=== PATIENT | male | born 1970 | race Caucasian/White ===

== ENCOUNTER 2016-10-02 11:54 | Emergency (ER) | payer MEDICAID ==
[~2016-10-02] VITALS: Ht 185.4 cm; Wt 99.8 kg
[~2016-10-02 11:54] MED LIST: LEVO500T6 PO; METR250T2 PO; SACC250C4 PO
[2016-10-02 11:58] VITALS: BP 164/99
[2016-10-02] MEDS: ALBUTEROL SULFATE/IPRATROPIU 3 ML SOL IH ONE ×2 (12:50→12:55)
[2016-10-02 12:57] LABS: HEMATOCRIT 42.8 % (36-52); HEMOGLOBIN 14.5 g/dL (12.0-18.0); MEAN CORPUSCULAR HEMOGLOBIN 30 pg (27-31); MEAN CORPUSCULAR HGB CONC 34 g/dL (33-37); MEAN CORPUSCULAR VOLUME 87 fL (80-94); PLATELET COUNT (AUTO) 278 K/uL (140-450); RED CELL DISTRIBUTION WIDTH 12.3 % (11.6-13.7); WHITE BLOOD COUNT (AUTO) 11.3 K/uL (4.8-10.8)
[2016-10-02 13:01] LABS: ANION GAP 11.9 (8-16); CALCIUM 8.4 mg/dL (8.5-10.1); CARBON DIOXIDE 26.7 mmol/L (21-32); CREATININE 1.2 mg/dL (0.6-1.3); POTASSIUM 3.6 mmol/L (3.5-5.1)
[2016-10-02] MEDS: methylPREDNISolone SS 125 MG/2 ML VIAL IVP ONE (13:02)
[2016-10-02 13:06] LABS: ALBUMIN 3.2 g/dL (3.4-5.0); TOTAL BILIRUBIN 0.8 mg/dL (0.0-1.0); TOTAL PROTEIN, SERUM 7.3 g/dL (6.4-8.2)
[2016-10-02 13:08] LABS: BAND % (MANUAL) 8 % (0-8); EOSINOPHILS % (MANUAL) 16 % (0-4); LYMPHOCYTES % (MANUAL) 14 % (20-46); MONOCYTES % (MANUAL) 9 % (5-12); NEUTROPHILS % (MANUAL) 53 (43-65)
[2016-10-02 15:00] VITALS: BP 127/76
== END 2016-10-02 15:00 | disposition home or self-care (01) ==
LOC: MED 11:54
DX: J45.901 Unspecified asthma with (acute) exacerbation (principal); I10 Essential (primary) hypertension; Z85.47 Personal history of malignant neoplasm of testis; Z90.79 Acquired absence of other genital organ(s)
CPT/HCPCS: 36415; 71010; 80053; 85025; 85379; 93005; 94640; 96374; 99285; J2930; J7620; Q0092

== ENCOUNTER 2017-06-04 09:46 | Emergency (ER) | payer SELFPAY ==
[~2017-06-04] VITALS: Ht 185.4 cm; Wt 99.4 kg
[~2017-06-04 09:46] MED LIST changes: +FLOR250 PO; -SACC250C4 PO
[2017-06-04 09:58] VITALS: BP 142/97
--- NOTE | 2017-06-04 10:07 | NUR ---
PT TO ER BED 2
--- NOTE | 2017-06-04 10:10 | NUR ---
46 m bib with son with c/o productive cough with mild sob x 1 wk. Pt denies any cp but sts "chest tightness" when breathing"; Pt denies fever or n/v/d. Pt is aox4 with steady gait. RR are even and unlabored. Pt positioned to comfort, bed down. ER MD ordonez by bedside examining pt. All needs met at this time. Will continue to monitor.
[2017-06-04] MEDS ORDERED: ALBUTEROL SULFATE/IPRATROPIU 3 ML SOL IH ONE ×2 (10:15→10:40)
[2017-06-04] MEDS ORDERED: methylPREDNISolone SS 125 MG/2 ML VIAL IM ONE (10:15)
[2017-06-04 11:10] VITALS: BP 126/81
--- NOTE | 2017-06-04 11:10 | NUR ---
Patient discharged with v/s stable. Written and verbal after care instructions given and explained. Patient alert, oriented and verbalized understanding of instructions. Ambulatory with steady gait. All questions addressed prior to discharge. ID band removed. Patient advised to follow up with PMD. Rx of Proair, Prednisone given. Patient educated on indication of medication including possible reaction and side effects. Opportunity to ask questions provided and answered.
== END 2017-06-04 11:15 | disposition home or self-care (01) ==
LOC: MED 09:46
DX: J45.909 Unspecified asthma, uncomplicated (principal); J06.9 Acute upper respiratory infection, unspecified; I10 Essential (primary) hypertension; Z85.47 Personal history of malignant neoplasm of testis; Z79.899 Other long term (current) drug therapy
CPT/HCPCS: 36415; 87804; 94640; 96372; 99284; J2930; J7620

== ENCOUNTER 2020-09-13 10:45 | Emergency (ER) | payer MEDICAID ==
[~2020-09-13] VITALS: Ht 185.4 cm; Wt 97.5 kg
[~2020-09-13 10:45] MED LIST changes: +METR-520 PO; -METR250T2 PO
[2020-09-13 10:57] VITALS: BP 146/96
--- NOTE | 2020-09-13 11:09 | NUR ---
DR. SOLORIO AT BEDSIDE ASSESSING PT
[2020-09-13] MEDS ORDERED: KETOROLAC 30 MG/ML VIAL IM ONE (11:10)
--- NOTE | 2020-09-13 11:10 | NUR ---
PATIENT PRESENTS TO ED WITH C/O RIB PAIN S/P FALL. PT STATES THAT HE SLIPPED WHILE GETTING OUT OF THE TUB AND LANDED ON HIS RIGHT RIBS. SKIN ON RIBS IS INTACT, NO SIGNS OF BRUSIING, TENDER TO FIRM PRESSUE. DENIES HITTING HEAD, DENIES LOC. DENIES N/V/D; SKIN IS PINK/WARM/DRY; AAOX4 WITH EVEN AND STEADY GAIT; LUNGS CLEAR BL; HR EVEN AND REGULAR; PT DENIES ANY FEVER, CP, SOB, OR COUGH AT THIS TIME; PATIENT STATES PAIN OF 0/10 AT THIS TIME; VSS; PATIENT POSITIONED FOR COMFORT; HOB ELEVATED; BEDRAILS UP X2; BED DOWN. ER MD MADE AWARE OF PT STATUS. HX: ASTHMA NKA
[2020-09-13] MEDS ORDERED: NAPR-1704 PO (12:28)
[2020-09-13] MEDS ORDERED: LID5T TP (12:28)
[2020-09-13] MEDS ORDERED: ACET-8386 PO (12:28)
[2020-09-13] MEDS ORDERED: ALBU-118 INH (12:38)
--- NOTE | 2020-09-13 13:07 | NUR ---
Patient discharged with v/s stable. Written and verbal after care instructions given and explained. Patient alert, oriented and verbalized understanding of instructions. Ambulatory with steady gait. All questions addressed prior to discharge. ID band removed. Patient advised to follow up with PMD. Rx of NORCO, NAPROSYN, LIDODERM given. Patient educated on indication of medication including possible reaction and side effects. Opportunity to ask questions provided and answered.
[2020-09-13 13:08] VITALS: BP 122/78
== END 2020-09-13 13:00 | disposition home or self-care (01) ==
LOC: MED 10:45
DX: S20.211A Contusion of right front wall of thorax, initial encounter (principal); J45.909 Unspecified asthma, uncomplicated; I10 Essential (primary) hypertension; Z79.899 Other long term (current) drug therapy; Z85.47 Personal history of malignant neoplasm of testis; Z98.890 Other specified postprocedural states; W19.XXXA Unspecified fall, initial encounter; Y93.89 Activity, other specified; Y92.89 Other specified places as the place of occurrence of the external cause; Y99.8 Other external cause status
CPT/HCPCS: 71045; 96372; 99283; J1885

== ENCOUNTER 2021-02-01 16:04 | Emergency (ER) | payer MEDICAID ==
[~2021-02-01] VITALS: Ht 185.4 cm; Wt 90.0 kg
[~2021-02-01 16:04] MED LIST changes: +ACET-8386 PO; +ALBU-118 INH; +LID5T TP; +NAPR-1704 PO
[2021-02-01 16:38] VITALS: BP 138/77
[2021-02-01 18:07] LABS: BASOPHILS % (AUTO) 0.3 % (0.0-2.0); EOSINOPHILS # (AUTO) 0.3 K/uL (0-0.4); EOSINOPHILS % (AUTO) 2.2 % (0.0-4.0); HEMATOCRIT 44.7 % (36-52); HEMOGLOBIN 15.3 g/dL (12.0-18.0); LYMPHOCYTES # (AUTO) 1.5 K/uL (2.0-11.5); MEAN CORPUSCULAR HEMOGLOBIN 31 pg (27-31); MEAN CORPUSCULAR HGB CONC 34 g/dL (33-37); MEAN CORPUSCULAR VOLUME 89.5 fL (80-94); MONOCYTES # (AUTO) 1.4 K/uL (0.8-1.0); MONOCYTES % (AUTO) 12.2 % (1.7-9.3); NEUTROPHILS # (AUTO) 8.5 K/uL (1.8-7.7); NEUTROPHILS % (AUTO) 72.3 % (42.2-75.2); PLATELET COUNT (AUTO) 415 K/uL (140-450); RED BLOOD CELL COUNT(AUTO) 4.99 MIL/uL (4.20-6.10); RED CELL DISTRIBUTION WIDTH 13.2 % (11.6-13.7); WHITE BLOOD COUNT (AUTO) 11.8 K/uL (4.8-10.8)
[2021-02-01 18:16] LABS: ALBUMIN 3.4 g/dL (3.4-5.0); ANION GAP 16.4 (8-16); CARBON DIOXIDE 24.4 mmol/L (21-32); CREATININE 1.2 mg/dL (0.6-1.3); POTASSIUM 3.8 mmol/L (3.5-5.1); TOTAL BILIRUBIN 0.9 mg/dL (0.0-1.0)
--- NOTE | 2021-02-01 18:31 | NUR ---
Pt ambulated to bed 08.
--- NOTE | 2021-02-01 18:43 | NUR ---
50 Y/O MALE C/O ABDOMINAL PAIN WITH DIARRHEA X2 WEEKS. PT STATES THE SAME THING HAPPENED IN 2016 AND WAS ADMITTED TO [facility] FOR PANCREATITIS AND COLITIS. +ACID REFLUX. STATES FEELS LIKE "BURPING" AND SHARP 10/10 PAIN. WITH NO APPETITE AND CHILLS. PMH: TESTICULAR CANCER-REMISSION X15 YRS AGO, ASTHMA NKDA
--- NOTE | 2021-02-01 19:20 | NUR ---
Pt report given to RAJESH FOLEY. Transfer of care at this time.
[2021-02-01] MEDS ORDERED: KETOROLAC 60 MG/2 ML VIAL IM ONE (19:30)
[2021-02-01] MEDS ORDERED: IBUP-2213 PO (19:40)
[2021-02-01] MEDS ORDERED: ACET-8386 PO (19:40)
[2021-02-01] MEDS ORDERED: CIPR500T4 PO (19:40)
[2021-02-01] MEDS ORDERED: NACL 0.9% 1,000 ML IV ONE (20:00)
[2021-02-01] MEDS ORDERED: KETOROLAC 30 MG/ML VIAL IVP ONE (20:00)
--- NOTE | 2021-02-01 20:05 | NUR ---
IV 20G EST TO LAC. +BLOOD RETURN, PATENT. PT TOLERATED WELL.
[2021-02-01 20:50] VITALS: BP 98/60
--- NOTE | 2021-02-01 20:50 | NUR ---
Patient discharged with v/s stable. Written and verbal after care instructions given and explained. Patient alert, oriented and verbalized understanding of instructions. Ambulatory with steady gait. All questions addressed prior to discharge. ID band removed. Patient advised to follow up with PMD. Rx of NORCO, MOTRIN AND CIPRO given. Patient educated on indication of medication including possible reaction and side effects. Opportunity to ask questions provided and answered.
== END 2021-02-01 20:50 | disposition home or self-care (01) ==
LOC: MED 16:04
DX: R10.13 Epigastric pain (principal); R19.7 Diarrhea, unspecified; J45.909 Unspecified asthma, uncomplicated; Z98.890 Other specified postprocedural states; Z79.899 Other long term (current) drug therapy
CPT/HCPCS: 36415; 80053; 83690; 85025; 96361; 96374; 99283; J1885; J7030

== ENCOUNTER 2021-02-06 09:25 | Inpatient (IN) | payer MEDICAID, SELFPAY ==
--- NOTE | 2021-01-25 19:00 | NUR ---
PATIENT RECEIVED RESTING IN BED, AWAKE, A/OX4. RESPIRATION EVEN AND UNLABORED. IV OF D5 0.45% NS WITH 40 MEQ KCL INFUSING AT 80 ML/HR, LEFT HAND G22. INDEPENDENT, ABLE TO AMBULATE BY HIMSELF TO THE BR. RN DISCUSSED WITH PATIENT MEDICATION REGIMEN, FALL AND SAFETY INTERVENTIONS AND MEDICAL MANAGEMENT. PATIENT RECEPTIVE TO PLAN OF CARE. VERBALIZED UNDERSTANDING. NO ACUTE DISTRESS NOTED.
[~2021-02-06] VITALS: Ht 185.4 cm; Wt 86.6 kg
[~2021-02-06 09:25] MED LIST changes: +CIPR500T4 PO; +IBUP-2213 PO
[2021-02-06 09:43] VITALS: BP 121/68
--- NOTE | 2021-02-06 09:47 | NUR ---
PT TO WAIT IN LOBBY. GIVEN URINE CUP
--- NOTE | 2021-02-06 11:03 | NUR ---
PATIENT AMBULATED WITH STEADY GAIT TO BED 4.
--- NOTE | 2021-02-06 11:20 | NUR ---
50 y/o M BIB self from home c/o abdominal pain, nausea vomiting x 2 weeks. Patient A&Ox4, ambulatory, reports seen here on Monday and discharged with ABX treatment without relief to symptoms. Patient states RUQ pain and epigastric pain 10/10, sharp/constant, radiating to low and mid back. Patient reports associated nausea, vomiting x 2 days, 3 episodes/day. Patient denies any medications for pain. Denies fever, SOB, chest pain, dizziness, dysuria, urinary symptoms. educational adviser in place. VSS; respirations even/unlabored. Bed locked in lowest position, side rails x 1, call light in reach. PMH: TESTICULAR CANCER X15 YRS AGO, IN REMISSION, pancreatitis 2016 NKDA Meds: ABX
--- NOTE | 2021-02-06 11:25 | NUR ---
Dr. Blanchard is evaluating patient at bedside
[2021-02-06] MEDS ORDERED: NACL 0.9% 1,000 ML IV ONE (11:35)
[2021-02-06] MEDS ORDERED: MORPHINE SULFATE 4 MG/ML SYR IVP ONE (11:35)
--- NOTE | 2021-02-06 11:53 | NUR ---
Pt reports positive relief, denies nausea. 9/10 pain
[2021-02-06 12:03] LABS: BASOPHILS # (AUTO) 0.3 K/uL (0.00-0.22); BASOPHILS % (AUTO) 1.7 % (0.0-2.0); EOSINOPHILS # (AUTO) 0.1 K/uL (0-0.4); EOSINOPHILS % (AUTO) 0.8 % (0.0-4.0); HEMATOCRIT 46.4 % (36-52); HEMOGLOBIN 15.9 g/dL (12.0-18.0); LYMPHOCYTES # (AUTO) 0.8 K/uL (2.0-11.5); LYMPHOCYTES % (AUTO) 4.5 % (20.5-51.1); MEAN CORPUSCULAR HEMOGLOBIN 30 pg (27-31); MEAN CORPUSCULAR HGB CONC 34 g/dL (33-37); MEAN CORPUSCULAR VOLUME 88.5 fL (80-94); MONOCYTES # (AUTO) 0.4 K/uL (0.8-1.0); MONOCYTES % (AUTO) 2.5 % (1.7-9.3); NEUTROPHILS # (AUTO) 16.3 K/uL (1.8-7.7); NEUTROPHILS % (AUTO) 90.5 % (42.2-75.2); PLATELET COUNT (AUTO) 489 K/uL (140-450); RED BLOOD CELL COUNT(AUTO) 5.24 MIL/uL (4.20-6.10); RED CELL DISTRIBUTION WIDTH 13.4 % (11.6-13.7)
[2021-02-06 12:21] LABS: ALBUMIN 2.6 g/dL (3.4-5.0); ANION GAP 19.7 (8-16); CARBON DIOXIDE 20.9 mmol/L (21-32); CREATININE 1.4 mg/dL (0.6-1.3); POTASSIUM 3.6 mmol/L (3.5-5.1); TOTAL BILIRUBIN 0.9 mg/dL (0.0-1.0)
--- NOTE | 2021-02-06 12:30 | NUR ---
Patient transported to CT by WC
--- NOTE | 2021-02-06 12:40 | NUR ---
Patient returned from CT and placed back onto IVF and marine geologist.
[2021-02-06 13:00] LABS: APPEARANCE,URINE HAZY (CLEAR); BILIRUBIN,URINE 2+ (NEGATIVE); BLOOD, URINE NEGATIVE (NEGATIVE); COLOR,URINE YELLOW (YELLOW); LEUKOCYTE ESTERASE ,URINE NEGATIVE (NEGATIVE); NITRITE, URINE POSITIVE (NEGATIVE); UGLUCOSE NEGATIVE (NEGATIVE)
--- NOTE | 2021-02-06 13:20 | NUR ---
Patient presents with both eyes closed in semi-fowlers position. Patient has music playing on phone resting on chest. patient monitor in place. VSS; respirations even/unlabored. Bed locked in lowest position, side rails x 1, call light in reach.
--- NOTE | 2021-02-06 13:25 | NUR ---
Dr. Blanchard is reevaluating patient at bedside.
[2021-02-06] MEDS ORDERED: MORPHINE SULFATE 2 MG/ML SYR IVP ONE (13:30)
[2021-02-06] MEDS ORDERED: AMPICILLIN/SULBACTAM 3 GM in NACL 0.9% 100 ML IV ONE (13:35)
[2021-02-06] MEDS ORDERED: DEXT 5% /NACL 0.9% 1,000 ML IV ONE (13:35)
[2021-02-06] MEDS ORDERED: AMPICILLIN/SULBACTAM 3 GM VIAL ONE (13:37)
[2021-02-06] MEDS ORDERED: ZOLPIDEM 5 MG TAB PO PRN (13:45)
[2021-02-06] MEDS ORDERED: DOCUSATE SODIUM 100 MG GELCAP PO PRN (13:45)
[2021-02-06] MEDS ORDERED: guaiFENesin DM 200/20 MG-10 ML 10 ML UDC PO PRN (13:45)
--- NOTE | 2021-02-06 13:50 | NUR ---
RAD AT BEDSIDE
--- NOTE | 2021-02-06 13:51 | NUR ---
Dr. Vazquez is evaluating patient at bedside
--- NOTE | 2021-02-06 14:15 | NUR ---
Aneesh feliciano and blood cultures handed to James, CPT
--- NOTE | 2021-02-06 14:35 | NUR ---
Lab at bedside for blood draw
[2021-02-06] MEDS: KETOROLAC 30 MG/ML VIAL IVP SCH ×2 (14:36→21:26)
[2021-02-06] MEDS: ONDANSETRON 4 MG/2 ML VIAL IM/IVP PRN ×2 (14:37→18:35)
[2021-02-06 14:56] LABS: BARBITURATE, URINE NEGATIVE ng/ml (NEG <=200); BENZODIAZEPINE, URINE NEGATIVE ng/mL (NEG <=200); CANNABINOID, URINE NEGATIVE ng/mL (NEG <=50); COCAINE, URINE NEGATIVE ng/mL (NEG <=300); PHENCYCLIDINE SCREEN,URINE NEGATIVE ng/mL (NEG <=25)
[2021-02-06] MEDS: predniSONE 5 MG TAB PO SCH ×2 (14:56→21:26)
[2021-02-06 14:57] LABS: OPIATE, URINE POSITIVE ng/mL (NEG <=2000)
[2021-02-06 15:21] LABS: PROTHROMBIN TIME 12.6 secs (10.8-13.4)
[2021-02-06 15:26] LABS: CHOL/HDL RATIO 4.7 (1-4.5); FREE T4 (FREE THYROXINE) 1.3 ng/dL (0.76-1.46); PHOSPHORUS 4.6 mg/dL (2.5-4.9); THYROID STIMULATING HORMONE 0.87 uIU/mL (0.34-3.74)
[2021-02-06] MEDS: LEVOFLOXACIN 750 MG/D5W PREMIX 150 ML IV SCH (15:27)
--- NOTE | 2021-02-06 15:27 | NUR ---
Patient resting in semi-fowlers position. secured entrance monitor and IVPB continued. VSS; respirations even/unlabored. Rates pain 2/10, (-) nausea. Bed locked in lowest position, side rails x 1, call light in reach.
--- NOTE | 2021-02-06 16:30 | NUR ---
Patient resting in semi-fowlers position. ekg monitor tech and IVPB continued. VSS; respirations even/unlabored. Bed locked in lowest position, side rails x 1, call light in reach.
--- NOTE | 2021-02-06 18:00 | NUR ---
Patient reports 10 requesting pain medication and nausea meds. States slight nausea. PRN orders to be given.
[2021-02-06] MEDS: HYDROcodone/APAP 7.5/325 MG 1 TAB PO PRN (18:35)
--- NOTE | 2021-02-06 18:37 | NUR ---
Patient resting in semi-fowlers position with environmental monitoring specialist and IVF continued. States + relief after Zofran 4mg IVP. Bed locked in lowest position, side rails x 1.
--- NOTE | 2021-02-06 19:05 | NUR ---
D5% NS 0.9% VTBI 320mL
--- NOTE | 2021-02-06 19:14 | NUR ---
Report and transfer of care endorsed to OG Powers.
--- NOTE | 2021-02-06 19:37 | NUR ---
pt is sitting up in bed using phone. pt denies pain at this time. vss. pt in stable condition. all needs met at this time. bed locked in lowest position, side railsx1.
--- NOTE | 2021-02-06 20:23 | NUR ---
report called to tadeo jones.
--- NOTE | 2021-02-06 20:26 | NUR ---
pt left to floor
--- NOTE | 2021-02-06 20:30 | NUR ---
Patient will be admitted to care of . Admited to tele. Will go to room 115. Belongings list completed. Report to tadeo jones.
--- NOTE | 2021-02-06 20:30 | NUR ---
PATIENT WAS BROUGHT TO TELEMETRY UNIT FROM ER VIA GURNEY. CC: ABDOMINAL PAIN DX: COLITIS, ABDOMINAL PAIN. AAOX4, NO ACUTE DISTRESS. RESPIRATION EVEN UNLABORED. PATIENT IS NPO EXCEPT MEDS. ORIENTED TO ROOM, CALL LIGHT , STAFF. CALL LIGHT WITHIN REACH. ALL SAFETY MEASURES ARE IN PLACE. WILL CONTINUE TO MONITOR.
[2021-02-07] VITALS: BP 98/58
[2021-02-07] MEDS: HYDROcodone/APAP 7.5/325 MG 1 TAB PO PRN ×4 (01:12→20:10)
[2021-02-07 04:00] VITALS: BP 98/53
[2021-02-07 05:31] LABS: HEMATOCRIT 37.7 % (36-52); HEMOGLOBIN 12.7 g/dL (12.0-18.0); MEAN CORPUSCULAR HEMOGLOBIN 30 pg (27-31); MEAN CORPUSCULAR HGB CONC 34 g/dL (33-37); PLATELET COUNT (AUTO) 443 K/uL (140-450); RED BLOOD CELL COUNT(AUTO) 4.19 MIL/uL (4.20-6.10); RED CELL DISTRIBUTION WIDTH 13.3 % (11.6-13.7); WHITE BLOOD COUNT (AUTO) 14.4 K/uL (4.8-10.8)
[2021-02-07] MEDS: KETOROLAC 30 MG/ML VIAL IVP SCH (05:54)
[2021-02-07 06:22] LABS: ANION GAP 13.3 (8-16); CARBON DIOXIDE 23.2 mmol/L (21-32); CREATININE 1.1 mg/dL (0.6-1.3); POTASSIUM 3.5 mmol/L (3.5-5.1)
[2021-02-07 06:36] LABS: BASOPHILS % (MANUAL) 0 % (0-2); EOSINOPHILS % (MANUAL) 0 % (0-4); LYMPHOCYTES % (MANUAL) 11 % (20-46); MONOCYTES % (MANUAL) 10 % (5-12)
--- NOTE | 2021-02-07 07:17 | NUR ---
BEDSIDE ENDORSEMENT GIVEN TO AM NURSE FOR CONTINUITY OF CARE. PATIENT IS STABLE.
--- NOTE | 2021-02-07 07:34 | NUR ---
RECEIVED REPORT FROM BENCH MOVER NURSE. PT STABLE. NO S/S OF DISTRESS. BREATHING IS SYMMETRICAL. CALL LIGHT IN REACH. ALL SAFETY MEASURES IN PLACE.
[2021-02-07 08:00] VITALS: BP 110/60
[2021-02-07 08:07] LABS: T4 (THYROXINE) 7.1 ug/dL (4.5-12.0)
[2021-02-07] MEDS: predniSONE 5 MG TAB PO SCH ×2 (08:41→20:09)
[2021-02-07] MEDS: PANTOPRAZOLE 40 MG TABEC PO SCH (08:42)
--- NOTE | 2021-02-07 09:30 | NUR ---
COLLECTED STOOL SAMPLE FROM PATIENT. PT COMPLAINED OF PAIN 10/22. REPOSITIONED, EDUCATED ON BREATHING EXERCISES, AND MEDICATED. WILL REASSESS. CALL LIGHT IN REACH. ALL SAFETY MEASURES IN PLACE.
--- NOTE | 2021-02-07 11:34 | NUR ---
PT RESTING IN BED. NO S/S OF DISTRESS. SYMMETRICAL BREATHING. IV PATENT, DRY AND INTACT. RUNNING FLUIDS PER MD ORDER. CALL LIGHT IN REACH. ALL SAFETY MEASURES IN PLACE
[2021-02-07 12:00] VITALS: BP 96/61
--- NOTE | 2021-02-07 13:25 | NUR ---
PATIENT REQUESTED TO TAKE A SHOWER. TELE MONITOR REMOVED TEMPORARILY. IV WRAPPED. PATIENT EDUCATED STRIP MACHINE OPERATOR LIGHT. ALL SAFETY MEASURES IN PLACE.
[2021-02-07] MEDS: LEVOFLOXACIN 750 MG/D5W PREMIX 150 ML IV SCH (14:20)
[2021-02-07] MEDS: ONDANSETRON 4 MG/2 ML VIAL IM/IVP PRN (15:11)
--- NOTE | 2021-02-07 15:15 | NUR ---
PT RESTING IN BED. REPORTED NAUSEA. MEDICATED PER MD ORDERS. PATIENT TOLERATING WELL. COLLECTED SECOND STOOL SAMPLE AND DELIVERED TO LAB. CALL LIGHT IN REACH. ALL SAFETY MEASURES IN PLACE.
[2021-02-07 16:00] VITALS: BP 107/66
--- NOTE | 2021-02-07 17:24 | NUR ---
PT IV FELL OUT WHEN GETTING OUT OF BED. WILL ESTABLISH NEW IV. IV CANULA INTACT. PT STABLE. NO S/S OF DISTRESS. PT STATED PAIN REDUCTION 2/10 AND TOLERABLE. CALL LIGHT IN REACH. ALL SAFETY MEASURES IN PLACE.
[2021-02-07] MEDS ORDERED: DEXMEDETOMIDINE HCL 400 MCG in NACL 0.9% 96 ML IV PRN (17:30)
[2021-02-07] MEDS ORDERED: VANCOMYCIN 500 MG VIAL PO SCH (18:00)
--- NOTE | 2021-02-07 18:30 | NUR ---
UNABLE TO PLACE IV AT THIS TIME. PATIENT HAS NOT RECEIVED 1800 MEDICATIONS PER MD ORDER. PT STABLE. CALL LIGHT IN REACH. ALL SAFETY MEASURES IN PLACE.
--- NOTE | 2021-02-07 19:22 | NUR ---
ENDORSED PT TO AMORTIZATION CLERK NURSE FOR CONTINUITY OF CARE. PT STABLE. NO S/S OF DISTRESS. CALL LIGHT IN REACH. ALL SAFETY MEASURES IN PLACE.
--- NOTE | 2021-02-07 19:23 | NUR ---
RECEIVED REPORT FROM AM NURSE. PATIENT IS RESTING IN BED. NO ACUTE DISTRESS NOTED. RESPIRATION EVEN UNLABORED. CALL LIGHT WITHIN REACH. WILL CONTINUE TO MONITOR.
[2021-02-07 20:00] VITALS: BP 117/67
[2021-02-07] MEDS: metroNIDAZOLE 500 MG/NS PREMIX 100 ML IV SCH (20:08)
--- NOTE | 2021-02-07 20:10 | NUR ---
DUE MEDS GIVEN ORDERED.
[2021-02-08] VITALS: BP 109/64
[2021-02-08] MEDS: HYDROcodone/APAP 7.5/325 MG 1 TAB PO PRN ×4 (00:13→19:40)
[2021-02-08 04:00] VITALS: BP 111/70
[2021-02-08] MEDS: VANCOMYCIN HCL 25 MG/ML SOLN PO SCH ×4 (05:12→18:03)
[2021-02-08] MEDS: metroNIDAZOLE 500 MG/NS PREMIX 100 ML IV SCH ×2 (05:13→13:32)
[2021-02-08 06:27] LABS: BASOPHILS % (AUTO) 0.1 % (0.0-2.0); EOSINOPHILS # (AUTO) 0.1 K/uL (0-0.4); EOSINOPHILS % (AUTO) 0.2 % (0.0-4.0); HEMATOCRIT 41.8 % (36-52); HEMOGLOBIN 13.9 g/dL (12.0-18.0); LYMPHOCYTES # (AUTO) 1.1 K/uL (2.0-11.5); LYMPHOCYTES % (AUTO) 4.9 % (20.5-51.1); MEAN CORPUSCULAR HEMOGLOBIN 30 pg (27-31); MEAN CORPUSCULAR HGB CONC 33 g/dL (33-37); MEAN CORPUSCULAR VOLUME 90.8 fL (80-94); MONOCYTES # (AUTO) 1.4 K/uL (0.8-1.0); MONOCYTES % (AUTO) 6.5 % (1.7-9.3); NEUTROPHILS # (AUTO) 19.5 K/uL (1.8-7.7); NEUTROPHILS % (AUTO) 88.3 % (42.2-75.2); PLATELET COUNT (AUTO) 473 K/uL (140-450); RED BLOOD CELL COUNT(AUTO) 4.61 MIL/uL (4.20-6.10); RED CELL DISTRIBUTION WIDTH 13.2 % (11.6-13.7); WHITE BLOOD COUNT (AUTO) 22.1 K/uL (4.8-10.8)
[2021-02-08 06:37] LABS: ANION GAP 10.1 (8-16); CARBON DIOXIDE 26.9 mmol/L (21-32); CREATININE 1.1 mg/dL (0.6-1.3)
--- NOTE | 2021-02-08 07:17 | NUR ---
RECEIVED REPORT FROM CRIME DATA SPECIALIST NURSE. PT STABLE. NO S/S OF DISTRESS. BREATHING IS SYMMETRICAL. CALL LIGHT IN REACH. ALL SAFETY MEASURES IN PLACE.
--- NOTE | 2021-02-08 07:20 | NUR ---
ENDORSED PATIENT TO AM NURSE FOR CONTINUITY OF CARE. PATIENT IS IN STABLE CONDITION.
[2021-02-08] MEDS: predniSONE 5 MG TAB PO SCH (08:38)
[2021-02-08] MEDS: PANTOPRAZOLE 40 MG TABEC PO SCH (08:45)
--- NOTE | 2021-02-08 08:56 | NUR ---
PATIENT COMPLAINED OF ABDOMINAL PAIN 10/22. PATIENT EDUCATED ON REPOSITIONING AND BREATHING EXERCISES. PATIENT MEDICATED. TOLERATING WELL. CALL LIGHT IN REACH. ALL SAFETY MEASURES IN PLACE
--- NOTE | 2021-02-08 09:23 | NUR ---
PATIENT HAS BEEN SCREENED AND CATEGORIZED HIGH NUTRITION RISK. PATIENT WILL BE SEEN WITHIN 1-2 DAYS OF ADMISSION. 02/08/21 RECEIVED FNS REFERRAL FOR NAUSEA AND VOMITING OVER [address]
[2021-02-08] MEDS: DEXT 5% / NACL 0.9% 1,000 ML IV SCH ×2 (09:40→17:56)
[2021-02-08] MEDS: ONDANSETRON 4 MG/2 ML VIAL IM/IVP PRN ×2 (10:45→16:31)
--- NOTE | 2021-02-08 10:46 | NUR ---
PT REPORTED NAUSEA. MEDICATED PER MD ORDER. EDUCATED ON MEDICATION GIVEN. PT VERBALIZED UNDERSTANDING. IV DRY, INTACT, PATENT. FLUIDS RUNNING PER MD ORDER. NO S/S OF DISTRESS. CALL LIGHT IN REACH. ALL SAFETY MEASURES IN PLACE.
[2021-02-08 12:00] VITALS: BP 106/63
--- NOTE | 2021-02-08 13:26 | NUR ---
RECEIVED VERBAL ORDER FROM DR. NICOLE TO TRANSFER PT TO MED SURG FROM TELE.
--- NOTE | 2021-02-08 14:26 | NUR ---
02/08/21 RD INITIAL ASSESSMENT COMPLETED PLEASE REFER TO NUTRITION ASSESSMENT UNDER CARE ACTIVITY FOR ESTIMATED NUTRITIONAL NEEDS. 1. CURRENTLY NPO 2. IF/WHEN MEDICALLY CLEAR FOR DIET CONSIDER SOFT/LOW RESIDUAL/LOW FIBER DIET 3. RD TO FOLLOW-UP 2-3 DAYS, HIGH RISK RAJESH SANTIAGO, RD
[2021-02-08] MEDS: LEVOFLOXACIN 750 MG/D5W PREMIX 150 ML IV SCH (14:36)
--- NOTE | 2021-02-08 15:08 | NUR ---
PT STATED HE HAD A SMALL AMOUNT OF YELLOW EMESIS. PT HAS BEEN INFORMED TO SLOW FURTHER INTAKE OF ICE AND WATER. PATIENT VERBALIZED UNDERSTANDING. PATIENT DENIES NAUSEA AT THIS TIME. MEDICATION RUNNING PER MD ORDER. PATIENT TOLERATING WELL. CALL LIGHT IN REACH. ALL SAFETY MEASURES IN PLACE.
[2021-02-08 16:00] VITALS: BP 120/76
--- NOTE | 2021-02-08 17:35 | NUR ---
PT RESTING IN BED. STATES HAVING A BAD TASTE IN MOUTH FROM EARLIER EMESIS. OFFERED PATIENT ICE CHIPS AND MOUTH WASH. CALL LIGHT IN REACH. ALL SAFETY MEASURES IN PLACE.
--- NOTE | 2021-02-08 19:21 | NUR ---
ENDORSED PT TO RESIDENTIAL SALES ASSOCIATE NURSE. PT STABLE. NO S/S OF DISTRESS. BREATHING SYMMETRICAL. CALL LIGHT IN REACH. ALL SAFETY MEASURES IN PLACE.
--- NOTE | 2021-02-08 19:22 | NUR ---
RECEIVED ENDORSEMENT FROM AM NURSE. PATIENT IN BED RESTING. NO S/S OF RESPIRATORY DISTRESS. BREATHING REGULAR UNLABORED. ALL SAFETY PRECAUTIONS ARE IN PLACE. IVF D5 NS AT 120 ML INFUSING ON THE LEFT FOREARM. CALL LIGHT WITHIN REACH. WILL CONTINUE TO MONITOR.
--- NOTE | 2021-02-08 19:40 | NUR ---
COMPLAINED OF MODERATE PAIN IN THE ABDOMEN 6/10, MEDICATED ORDERED. NO SOB NOTED. WILL CONTINUE TO MONITOR.
[2021-02-09] VITALS: BP 130/77
[2021-02-09] MEDS: HYDROcodone/APAP 7.5/325 MG 1 TAB PO PRN ×4 (00:20→18:24)
[2021-02-09] MEDS: DEXT 5% / NACL 0.9% 1,000 ML IV SCH ×2 (02:15→08:10)
[2021-02-09 06:50] LABS: BASOPHILS % (AUTO) 0.1 % (0.0-2.0); EOSINOPHILS # (AUTO) 0.1 K/uL (0-0.4); EOSINOPHILS % (AUTO) 0.3 % (0.0-4.0); HEMOGLOBIN 12.5 g/dL (12.0-18.0); LYMPHOCYTES # (AUTO) 0.8 K/uL (2.0-11.5); LYMPHOCYTES % (AUTO) 4.1 % (20.5-51.1); MEAN CORPUSCULAR HEMOGLOBIN 30 pg (27-31); MEAN CORPUSCULAR HGB CONC 34 g/dL (33-37); MEAN CORPUSCULAR VOLUME 89.7 fL (80-94); MONOCYTES # (AUTO) 1.4 K/uL (0.8-1.0); MONOCYTES % (AUTO) 6.9 % (1.7-9.3); NEUTROPHILS # (AUTO) 18.1 K/uL (1.8-7.7); NEUTROPHILS % (AUTO) 88.6 % (42.2-75.2); PLATELET COUNT (AUTO) 442 K/uL (140-450); RED BLOOD CELL COUNT(AUTO) 4.12 MIL/uL (4.20-6.10); RED CELL DISTRIBUTION WIDTH 13.4 % (11.6-13.7); WHITE BLOOD COUNT (AUTO) 20.4 K/uL (4.8-10.8)
[2021-02-09 06:56] LABS: ANION GAP 10.1 (8-16); CARBON DIOXIDE 24.2 mmol/L (21-32); POTASSIUM 3.3 mmol/L (3.5-5.1)
--- NOTE | 2021-02-09 07:15 | NUR ---
RECEIVE REPORT FROM GRADE TEACHER NURSE FOR CONTINUITY OF CARE. PATIENT SLEEPING. PATIENT ON ROOM AIR. NO ACUTE DISTRESS NOTED. ALL SAFETY MEASURES IN PLACE. CALL LIGHT WITHIN REACH. WILL CONTINUE TO MONITOR.
--- NOTE | 2021-02-09 07:29 | NUR ---
ENDORSEMENT GIVEN TO AM NURSE FOR CONTINUITY OF CARE. PATIENT IS STABLE.
[2021-02-09 08:00] VITALS: BP 109/67
[2021-02-09] MEDS: PANTOPRAZOLE 40 MG TABEC PO SCH (08:05)
--- NOTE | 2021-02-09 08:05 | NUR ---
PATIENT AWAKE AND ALERT. NO ACUTE DISTRESS NOTED. PATIENT ON ROOM AIR. SCHEDULED MEDICATION GIVEN.CALL LIGHT WITHIN REACH. ALL SAFETY MEASURES IN PLACE. WILL CONTINUE TO MONITOR.
[2021-02-09] MEDS: POTASSIUM CHLORIDE 10 MEQ TABER PO PRN (08:06)
--- NOTE | 2021-02-09 10:59 | NUR ---
PT AWAKE AND ALERT. PT C/O ABD PAIN. PAIN MEDICATION GIVEN. CALL LIGHT WITHIN REACH. ALL SAFETY MEASURES IN PLACE. WILL CONTINUE TO MONITOR.
[2021-02-09] MEDS: ONDANSETRON 4 MG/2 ML VIAL IM/IVP PRN ×2 (11:05→22:11)
--- NOTE | 2021-02-09 11:05 | NUR ---
PATIENT HAVING EPISODE OF EMESIS. ZOFRAN GIVEN. CALL LIGHT WITHIN REACH. ALL SAFETY MEASURES IN PLACE. WILL CONTINUE TO MONITOR.
--- NOTE | 2021-02-09 11:35 | NUR ---
PATIENT REASSESSED FOR NAUSEA. PATIENT DENIES NAUSEA AT THIS TIME. WILL CONTINUE TO MONITOR.
--- NOTE | 2021-02-09 11:57 | NUR ---
PAIN REASSESSMENT COMPLETED. PATIENT STATES PAIN IS AT A TOLERABLE LEVEL. WILL CONTINUE TO MONITOR.
--- NOTE | 2021-02-09 12:59 | NUR ---
DC PLANNING: CM SPOKE WITH THE PATIENT AT BEDSIDE, CONFIRMED HIS ADDRESS AND PHONE NUMBER PER FACE SHEET. CORRECT ADDRESS IS [id number] IN [place]. THE PATIENT LIVES IN A SINGLE STORY HOUSE WITH FRIENDS AND IS INDEPENDENT IN ALL ACTIVITIES. HE HAS NO H/O OF HOME HEALTH OR DME AND DOES NOT HAVE A PCP. THE PATIENT WAS GIVEN A M/KASANDRA WEBSITE HANDOUT FOR THE MEDI-LINE NURSE WHO ASSISTS WITH FINDING PCP'S FOR M/KASANDRA PATIENTS. ENCOURAGED THE PATIENT TO START FOLLOWING UP WITH A PCP REGULARLY GIVEN HIS MEDICAL HISTORY AND CURRENT DX OF COLITIS. NO DC NEEDS IDENTIFIED, CM WILL FOLLOW FOR NEEDS.
--- NOTE | 2021-02-09 13:05 | NUR ---
PATIENT AWAKE AND ALERT. NO ACUTE DISTRESS NOTED. DENIES PAIN AT THIS TIME. CALL LIGHT WITHIN REACH. ALL SAFETY MEASURES IN PLACE. WILL CONTINUE TO MONITOR.
[2021-02-09] MEDS: LEVOFLOXACIN 750 MG/D5W PREMIX 150 ML IV SCH (14:29)
[2021-02-09] MEDS ORDERED: POTASSIUM CHLORIDE 20% 40 MEQ/15 ML UDC GT SCH (15:30)
[2021-02-09 16:00] VITALS: BP 112/79
--- NOTE | 2021-02-09 16:08 | NUR ---
POTASSIUM 40 MEQ NOT GIVEN DUE TO ADMINISTERING KDUR IN THE MORNING.
[2021-02-09] MEDS: LACTULOSE 20 GM/30 ML UDC PO SCH (16:21)
[2021-02-09] MEDS: POTASSIUM CHL 40 MEQ/ D5-1/2NS 1,000 ML IV SCH (16:23)
--- NOTE | 2021-02-09 16:36 | NUR ---
PATIENT AWAKE AND ALERT. PATIENT HAD EPISODE OF EMESIS. SCHEDULED MEDICATION GIVEN. CALL LIGHT WITHIN REACH. ALL SAFETY MEASURES IN PLACE. WILL CONTINUE TO MONITOR.
--- NOTE | 2021-02-09 17:34 | NUR ---
ENDORSED PATIENT TO ADRIEN FOLEY.
--- NOTE | 2021-02-09 17:35 | NUR ---
RECEIVED REPORT FROM KEISHA FOLEY. ALESSANDRO CACERES. DENIES PAIN.
[2021-02-09] MEDS ORDERED: MAGNESIUM CITRATE 300 ML BTL PO SCH (19:00)
--- NOTE | 2021-02-09 19:15 | NUR ---
GAVE CHANGE OF SHIFT REPORT TO NIGHT NURSE AT BEDSIDE FOR CONTINUITY OF CARE. PT STABLE. DISCUSSED POC.
--- NOTE | 2021-02-09 19:16 | NUR ---
RECD. PATIENT RESTING IN BED, AWAKE, A/OX4. RESPIRATION EVEN AND UNLABORED. IV OF D5 0.45% NS WITH 40 MEQ KCL INFUSING AT 80 ML/HR, LEFT HAND G22. INDEPENDENT, ABLE TO AMBULATE BY HIMSELF TO THE BR. VERBALIZED STILL HAVING LOOSE BM AND NAUSEA. MEDICATIONS FOR THE NIGHT DISCUSSED WITH PATIENT. VERBALIZED UNDERSTANDING. DENIES PAIN 0/10.
[2021-02-09 20:00] VITALS: BP 120/75
--- NOTE | 2021-02-09 20:00 | NUR ---
PATIENT PLAN OF CARE DISCUSSED AND REVIEWED WITH SOHA PAZ.
--- NOTE | 2021-02-09 20:35 | NUR ---
HAD LOOSE BM, UNABLE TO CONTROL, WITH LOOSE BLOOD TINT BM ON THE BED PADS, CHANGED BEDDINGS, PATIENT CLEANSED HIMSELF IN THE SHOWER.
[2021-02-09] MEDS ORDERED: methylPREDNISolone SS 40 MG/ML VIAL IVP SCH (21:00)
[2021-02-09] MEDS ORDERED: HYDROCORTISONE NA SUCC 100 MG/2 ML VIAL IV SCH (21:00)
[2021-02-09] MEDS ORDERED: MORPHINE SULFATE 2 MG/ML SYR IVP PRN (21:25)
--- NOTE | 2021-02-09 21:46 | NUR ---
UNABLE TO SLEEP, MEDICATED WITH AMBIEN PER MD ORDER. Addendum: 02/11/21 at 0653 by Jihan Montelongo LVN CORRECTION: PLS DISREGARD THIS CHARTING, WRONG ENTRY.
[2021-02-09] MEDS: POLYETHYLENE GLYCOL 17 GM/PKT PO SCH (21:47)
--- NOTE | 2021-02-09 21:47 | NUR ---
MIRALAX ADMINISTERED PER MD ORDER.
--- NOTE | 2021-02-09 22:12 | NUR ---
VOMITED APPROXIMATELY 100 YELLOWISH LIQUID, MEDICATED WITH ZOFRAN BY OG MARTINEZ PER MD ORDER.
[2021-02-09] MEDS: methylPREDNISolone SS 40 MG/ML VIAL IVP SCH (22:15)
--- NOTE | 2021-02-09 23:12 | NUR ---
RESTING COMFORTABLY IN BED, NO N/V NOTED.
[2021-02-10] MEDS: HYDROcodone/APAP 7.5/325 MG 1 TAB PO PRN ×4 (01:12→21:49)
--- NOTE | 2021-02-10 01:30 | NUR ---
USED THE BEDPAN, HAD BM WITH SOME BLOOD.
--- NOTE | 2021-02-10 02:30 | NUR ---
SLEEPING COMFORTABLY IN BED, RESPIRATION EVEN AND UNLABORED.
[2021-02-10] MEDS: ONDANSETRON 4 MG/2 ML VIAL IM/IVP PRN ×3 (03:17→20:40)
--- NOTE | 2021-02-10 03:17 | NUR ---
WITH NAUSEA, MEDICATED WITH ZOFRAN PER MD ORDER BY OG HOGAN.
[2021-02-10] MEDS: POTASSIUM CHL 40 MEQ/ D5-1/2NS 1,000 ML IV SCH ×2 (03:35→09:36)
--- NOTE | 2021-02-10 04:17 | NUR ---
NO NAUSEA NOTED, RESTING IN BED COMFORTABLY.
--- NOTE | 2021-02-10 05:30 | NUR ---
USED THE BSC, HAD LOOSE BM WITH TINT OF BLOOD, 200 ML IN AMOUNT. NOT YET CLEAR
[2021-02-10 07:37] LABS: HEMATOCRIT 41.1 % (36-52); HEMOGLOBIN 13.7 g/dL (12.0-18.0); MEAN CORPUSCULAR HEMOGLOBIN 30 pg (27-31); MEAN CORPUSCULAR HGB CONC 33 g/dL (33-37); MEAN CORPUSCULAR VOLUME 90.8 fL (80-94); PLATELET COUNT (AUTO) 537 K/uL (140-450); RED BLOOD CELL COUNT(AUTO) 4.52 MIL/uL (4.20-6.10); RED CELL DISTRIBUTION WIDTH 13.5 % (11.6-13.7)
[2021-02-10 07:41] LABS: ANION GAP 11.6 (8-16); POTASSIUM 4.6 mmol/L (3.5-5.1)
[2021-02-10 08:00] VITALS: BP 110/75
[2021-02-10 08:25] LABS: LYMPHOCYTES % (MANUAL) 4 % (20-46)
[2021-02-10 08:26] LABS: MONOCYTES % (MANUAL) 4 % (5-12)
[2021-02-10] MEDS: methylPREDNISolone SS 40 MG/ML VIAL IVP SCH ×2 (09:35→20:40)
[2021-02-10] MEDS: LACTULOSE 20 GM/30 ML UDC PO SCH ×2 (09:36→13:00)
[2021-02-10] MEDS: POLYETHYLENE GLYCOL 17 GM/PKT PO SCH (09:36)
--- NOTE | 2021-02-10 09:55 | NUR ---
SCHEDULED MEDICATIONS DUE GIVEN. WILL CONTINUE TO MONITOR.
[2021-02-10] MEDS ORDERED: fentaNYL citrate 0.05 MG/ML VIAL ONE (13:06)
[2021-02-10] MEDS ORDERED: diphenhydrAMINE 50 MG/ML VIAL ONE (13:06)
[2021-02-10] MEDS ORDERED: MIDAZOLAM 5 MG/5 ML VIAL ONE (13:06)
--- NOTE | 2021-02-10 13:22 | NUR ---
OR NURSES AT BEDSIDE TO TAKE PATIENT FOR COLONOSCOPY. WILL CONTINUE TO MONITOR WHEN PATIENT RETURNS.
[2021-02-10] MEDS ORDERED: MIDAZOLAM 2 MG/2 ML VIAL IVP ONE (14:05)
[2021-02-10] MEDS ORDERED: fentaNYL citrate 0.05 MG/ML VIAL IVP ONE (14:05)
--- NOTE | 2021-02-10 14:50 | NUR ---
PATIENT BACK FROM COLONOSCOPY. NO DISTRESS NOTED. WILL CONTINUE TO MONITOR.
[2021-02-10 16:00] VITALS: BP 128/78
[2021-02-10] MEDS: MESALAMINE 250 MG CAPER PO SCH (17:35)
--- NOTE | 2021-02-10 17:36 | NUR ---
PATIENT COMPLAINS OF PAIN, NORCO GIVEN AT THIS TIME. OTHER SCHEDULED MEDICATIONS DUE GIVEN. WILL CONTINUE TO MONITOR.
--- NOTE | 2021-02-10 19:15 | NUR ---
GAVE REPORT TO TRAILHEAD MAINTENANCE WORKER NURSE FOR CONTINUITY OF CARE. PATIENT IN STABLE CONDITION.
--- NOTE | 2021-02-10 19:16 | NUR ---
RECD. RESTING IN BED, AWAKE, A/OX4. RESPIRATION EVEN AND UNLABORED. IV OF D5 0.45% NS INFUSING AT 80 ML/HR, LEFT FOREARM G22. INDEPENDENT, AMBULATORY TO THE BR. STILL WITH OCCASIONAL ABDOMINAL PAIN AND NAUSEA. MEDICATIONS FOR THE SHIFT DISCUSSED WITH PATIENT. VERBALIZED UNDERSTANDING. DENIES PAIN 0/10.
--- NOTE | 2021-02-10 20:40 | NUR ---
NAUSEATED, MEDICATED WITH ZOFRAN PER MD ORDER BY OG AUSTIN. ALSO ADMINISTERED SCHEDULED SOLU-MEDROL IVP.
--- NOTE | 2021-02-10 21:40 | NUR ---
RESTING IN BED, WATCHING TV. NO COMPLAINT OF NAUSEA.
--- NOTE | 2021-02-10 21:46 | NUR ---
UNABLE TO SLEEP, MEDICATED WITH AMBIEN PER MD ORDER.
--- NOTE | 2021-02-10 22:46 | NUR ---
SLEEPING COMFORTABLY IN BED.
[2021-02-11] VITALS: BP 117/73
--- NOTE | 2021-02-11 | NUR ---
COMFORTABLE, ASLEEP IN BED.
[2021-02-11] MEDS: POTASSIUM CHL 40 MEQ/ D5-1/2NS 1,000 ML IV SCH (01:05)
[2021-02-11] MEDS: HYDROcodone/APAP 7.5/325 MG 1 TAB PO PRN ×2 (04:44→09:43)
--- NOTE | 2021-02-11 04:44 | NUR ---
CHECKED PATIENT, VERBALIZED HE WAS ABLE TO SLEEP. PAIN MEDICATION ADMINISTERED PER MD ORDER.
--- NOTE | 2021-02-11 06:30 | NUR ---
COMFORTABLE IN BED, VERBALIZED HE DOES NOT WANT TO EAT MUCH, WANTS TO REST HIS STOMACH. NO COMPLAINT OF ABDOMINAL PAIN AT THIS TIME, 0.
[2021-02-11 07:00] LABS: BASOPHILS % (AUTO) 0.1 % (0.0-2.0); HEMATOCRIT 44.3 % (36-52); HEMOGLOBIN 14.6 g/dL (12.0-18.0); LYMPHOCYTES # (AUTO) 1.3 K/uL (2.0-11.5); LYMPHOCYTES % (AUTO) 7.9 % (20.5-51.1); MEAN CORPUSCULAR HEMOGLOBIN 30 pg (27-31); MEAN CORPUSCULAR HGB CONC 33 g/dL (33-37); MEAN CORPUSCULAR VOLUME 90.2 fL (80-94); MONOCYTES # (AUTO) 0.8 K/uL (0.8-1.0); MONOCYTES % (AUTO) 4.7 % (1.7-9.3); NEUTROPHILS % (AUTO) 87.3 % (42.2-75.2); PLATELET COUNT (AUTO) 605 K/uL (140-450); RED BLOOD CELL COUNT(AUTO) 4.91 MIL/uL (4.20-6.10); RED CELL DISTRIBUTION WIDTH 13.5 % (11.6-13.7); WHITE BLOOD COUNT (AUTO) 16.1 K/uL (4.8-10.8)
[2021-02-11 07:02] LABS: ANION GAP 12.6 (8-16); POTASSIUM 4.6 mmol/L (3.5-5.1)
--- NOTE | 2021-02-11 07:20 | NUR ---
Received report from pm nurse Jihan. Patient resting in bed, awake, no signs of distress, no c/o discomfort. Call light within reach.
[2021-02-11 08:00] VITALS: BP 124/61
[2021-02-11] MEDS: methylPREDNISolone SS 40 MG/ML VIAL IVP SCH ×2 (09:34→20:36)
[2021-02-11] MEDS: levoFLOXacin 500 MG TAB PO SCH (09:34)
[2021-02-11] MEDS: MESALAMINE 250 MG CAPER PO SCH (09:34)
[2021-02-11] MEDS: POTASSIUM CHLORIDE 10 MEQ TABER PO PRN (09:45)
[2021-02-11] MEDS: ACETAMINOPHEN 325 MG TAB PO PRN (13:57)
[2021-02-11] MEDS: MESALAMINE 400 MG CAPSULE.DR PO SCH ×2 (13:57→17:05)
--- NOTE | 2021-02-11 15:32 | NUR ---
02/11/21 RD FOLLOW UP COMPLETED. PLEASE REFER TO NUTRITION ASSESSMENT UNDER CARE ACTIVITY FOR ESTIMATED NUTRITIONAL NEEDS. CONTINUE REGULAR DIET ORDERED RD TO FOLLOW-UP IN 3-5 DAYS PATIENT IS MODERATE RISK. YARON CLARK RD
[2021-02-11 16:00] VITALS: BP 124/81
[2021-02-11] MEDS ORDERED: KETOROLAC 30 MG/ML VIAL IVP SCH (17:00)
[2021-02-12] VITALS: BP 128/76
[2021-02-12 06:46] LABS: BASOPHILS % (AUTO) 0.1 % (0.0-2.0); HEMOGLOBIN 13.8 g/dL (12.0-18.0); LYMPHOCYTES # (AUTO) 0.9 K/uL (2.0-11.5); LYMPHOCYTES % (AUTO) 5.7 % (20.5-51.1); MEAN CORPUSCULAR HEMOGLOBIN 30 pg (27-31); MEAN CORPUSCULAR HGB CONC 33 g/dL (33-37); MEAN CORPUSCULAR VOLUME 91.6 fL (80-94); MONOCYTES # (AUTO) 0.8 K/uL (0.8-1.0); MONOCYTES % (AUTO) 5.1 % (1.7-9.3); NEUTROPHILS # (AUTO) 13.7 K/uL (1.8-7.7); NEUTROPHILS % (AUTO) 89.1 % (42.2-75.2); PLATELET COUNT (AUTO) 549 K/uL (140-450); RED BLOOD CELL COUNT(AUTO) 4.59 MIL/uL (4.20-6.10); RED CELL DISTRIBUTION WIDTH 13.2 % (11.6-13.7); WHITE BLOOD COUNT (AUTO) 15.3 K/uL (4.8-10.8)
--- NOTE | 2021-02-12 07:15 | NUR ---
RECEIVED REPORT FROM JET WIPER RN FOR CONTINUITY OF CARE. PATIENT IS IN BED RESTING. NO S/S OF DISTRESS. RESPIRATIONS ARE EVEN AND UNLABORED. ALL SAFETY PRECAUTIONS IN PLACE.
[2021-02-12 07:19] LABS: ANION GAP 12.5 (8-16); CARBON DIOXIDE 23.7 mmol/L (21-32); CREATININE 0.9 mg/dL (0.6-1.3); POTASSIUM 5.2 mmol/L (3.5-5.1)
[2021-02-12 08:00] VITALS: BP 115/77
[2021-02-12] MEDS: levoFLOXacin 500 MG TAB PO SCH (08:38)
[2021-02-12] MEDS: methylPREDNISolone SS 40 MG/ML VIAL IVP SCH ×2 (08:39→20:55)
--- NOTE | 2021-02-12 08:45 | NUR ---
ADMINISTERED SCHEDULED MEDICATIONS. PATIENT VERBALIZED UNDERSTANDING. ALL SAFETY PRECAUTIONS IN PLACE.
[2021-02-12] MEDS: MESALAMINE 400 MG CAPSULE.DR PO SCH ×3 (09:00→18:06)
[2021-02-12] MEDS: ACETAMINOPHEN 325 MG TAB PO PRN (11:04)
--- NOTE | 2021-02-12 11:10 | NUR ---
PATIENT COMPLAINED OF 3/10 PAIN. ADMINISTERED PRN PAIN MEDICATIONS PER DR ORDER. SAFETY PRECAUTIONS IN PLACE.
--- NOTE | 2021-02-12 13:30 | NUR ---
PATIENT AWAKE AND ALERT. NO S/S OF DISTRESS. ALL SAFETY PRECAUTIONS IN PLACE.
--- NOTE | 2021-02-12 15:13 | NUR ---
RECEIVED TORB FROM DR. HAWLEY FOR BLAND AND LOW FIBER DIET.
--- NOTE | 2021-02-12 15:20 | NUR ---
PATIENT AWAKE AND ALERT. TALKED WITH PATIENT ABOUT POC AGAIN AND EDUCATED PATIENT ABOUT LIFESTYLE AND DIETARY CHANGES. PATIENT IS VERY WILLING AND MOTIVATED. ALL SAFETY PRECAUTIONS REMAIN IN PLACE. WILL CONTINUE TO MONITOR.
[2021-02-12 16:00] VITALS: BP 116/79
--- NOTE | 2021-02-12 17:35 | NUR ---
PATIENT IS AWAKE AND WATCHING TV. NO S/S OF DISTRESS. NO COMPLAINTS OF PAIN. ALL SAFETY PRECAUTIONS IN PLACE.
--- NOTE | 2021-02-12 19:13 | NUR ---
ENDORSED PATIENT TO WELDER OPERATOR RN FOR CONTINUITY OF CARE. PATIENT IS STABLE.
--- NOTE | 2021-02-12 20:00 | NUR ---
RECEIVED REPORT AT BED SIDE .PT'S CONDITION IS STABLE.SL PATENT.NO C/O PAIN NOW.RESP.UNLABORED IN RA.CALL LIGHT WITHIN REACH,WILL CONT.MONITORING.
--- NOTE | 2021-02-13 01:00 | NUR ---
SLEEPING W/O S/S OF ANY DISTRESS.
[2021-02-13 04:00] VITALS: BP 121/80
--- NOTE | 2021-02-13 06:40 | NUR ---
SLEPT WELL.NO C/O PAIN WHOLE NIGHT.
[2021-02-13] MEDS: ACETAMINOPHEN 325 MG TAB PO PRN (07:08)
[2021-02-13 07:12] LABS: BASOPHILS % (AUTO) 0.1 % (0.0-2.0); EOSINOPHILS % (AUTO) 0.1 % (0.0-4.0); HEMATOCRIT 42.3 % (36-52); HEMOGLOBIN 14.1 g/dL (12.0-18.0); LYMPHOCYTES # (AUTO) 1.2 K/uL (2.0-11.5); LYMPHOCYTES % (AUTO) 7.9 % (20.5-51.1); MEAN CORPUSCULAR HEMOGLOBIN 30 pg (27-31); MEAN CORPUSCULAR HGB CONC 34 g/dL (33-37); MEAN CORPUSCULAR VOLUME 89.7 fL (80-94); MONOCYTES # (AUTO) 0.9 K/uL (0.8-1.0); MONOCYTES % (AUTO) 5.9 % (1.7-9.3); NEUTROPHILS # (AUTO) 13.5 K/uL (1.8-7.7); PLATELET COUNT (AUTO) 553 K/uL (140-450); RED BLOOD CELL COUNT(AUTO) 4.71 MIL/uL (4.20-6.10); RED CELL DISTRIBUTION WIDTH 13.2 % (11.6-13.7); WHITE BLOOD COUNT (AUTO) 15.7 K/uL (4.8-10.8)
[2021-02-13 07:28] LABS: ALBUMIN 2.2 g/dL (3.4-5.0); ANION GAP 9.7 (8-16); CARBON DIOXIDE 26.4 mmol/L (21-32); CREATININE 0.9 mg/dL (0.6-1.3); MAGNESIUM 2.3 mg/dL (1.8-2.4); PHOSPHORUS 4.2 mg/dL (2.5-4.9); POTASSIUM 5.1 mmol/L (3.5-5.1); TOTAL BILIRUBIN 0.4 mg/dL (0.0-1.0)
[2021-02-13 08:00] VITALS: BP 115/77
--- NOTE | 2021-02-13 08:00 | NUR ---
RECEIVED REPORT FROM BACKUP ADMINISTRATIVE COORDINATOR AT BEDSIDE FOR CONTINUITY OF CARE. PATIENT ALERT AWAKE ORIENTED X4, NOT IN ANY DISTRESS NOTED. DENIES PAIN. HEPLOCK ON THE LFA DRY AND INTACT. DENIES PAIN AT THIS TIME.CALL LIGHT WITHIN REACH. NEEDS ATTENDED. WILL CONTINUE TO MONITOR.
[2021-02-13] MEDS: methylPREDNISolone SS 40 MG/ML VIAL IVP SCH ×2 (08:41→21:39)
[2021-02-13] MEDS: MESALAMINE 400 MG CAPSULE.DR PO SCH ×3 (08:42→18:21)
--- NOTE | 2021-02-13 09:00 | NUR ---
DUE MEDICATIONS GIVEN, AND TOLERATED WELL.
[2021-02-13 16:00] VITALS: BP 132/84
--- NOTE | 2021-02-13 19:33 | NUR ---
PATIENT RESTING IN BED, DENIES PAIN, ASKING FOR MEDICATION FOR STOMACH UPSET. REPORT GIVEN TO THE FBI INVESTIGATOR FOR CONTINUITY OF CARE. IN STABLE CONDITION.
--- NOTE | 2021-02-13 20:00 | NUR ---
PATIENT WAS RECEIVED IN BED ALERT AND COHERENT, NO RESPIRATORY DISTRESS, DENIES ANY PAIN.
--- NOTE | 2021-02-13 22:00 | NUR ---
PATIENT ASKED FOR HIS POPSICLE FROM THE [facility], RN SERVED.
--- NOTE | 2021-02-14 | NUR ---
PATIENT WAS ASLEEP
--- NOTE | 2021-02-14 02:00 | NUR ---
PATIENT WAS ASLEEP
[2021-02-14 04:00] VITALS: BP 125/81
--- NOTE | 2021-02-14 05:00 | NUR ---
V/S WNL, PATIENT REQUESTED FOR DOUBLE BREAKFAST TODAY, RELAYED TO DIETARY.
[2021-02-14 07:31] LABS: HEMATOCRIT 44.4 % (36-52); HEMOGLOBIN 14.6 g/dL (12.0-18.0); MEAN CORPUSCULAR HEMOGLOBIN 30 pg (27-31); MEAN CORPUSCULAR HGB CONC 33 g/dL (33-37); MEAN CORPUSCULAR VOLUME 90.7 fL (80-94); PLATELET COUNT (AUTO) 655 K/uL (140-450); RED BLOOD CELL COUNT(AUTO) 4.89 MIL/uL (4.20-6.10); RED CELL DISTRIBUTION WIDTH 13.3 % (11.6-13.7); WHITE BLOOD COUNT (AUTO) 21.9 K/uL (4.8-10.8)
--- NOTE | 2021-02-14 07:39 | NUR ---
REPORTS WERE GIVEN TRANSFER OF CARE ENDORSED.
[2021-02-14 07:56] LABS: ALBUMIN 2.3 g/dL (3.4-5.0); ANION GAP 11.8 (8-16); CARBON DIOXIDE 25.1 mmol/L (21-32); MAGNESIUM 2.4 mg/dL (1.8-2.4); PHOSPHORUS 4.5 mg/dL (2.5-4.9); POTASSIUM 4.9 mmol/L (3.5-5.1); TOTAL BILIRUBIN 0.4 mg/dL (0.0-1.0)
[2021-02-14 08:00] VITALS: BP 116/71
--- NOTE | 2021-02-14 08:00 | NUR ---
RECEIVED REPORT FROM [facility] FOR CONTINUITY OF CARE. PATIENT ALERT AWAKE ORIENTED X4, NOT IN ANY DISTRESS NOTED. DENIES PAIN. WITH HEPLOCK ON THE LEFT FORE ARM G 22 DRY AND INTACT. AMBULATES TO THE BATHROOM. WANTS TO TAKE SHOWER. NEEDS ATTENDED. WILL CONTINUE TO MONITOR.
[2021-02-14 08:05] LABS: LYMPHOCYTES % (MANUAL) 1 % (20-46); MONOCYTES % (MANUAL) 3 % (5-12)
[2021-02-14] MEDS: methylPREDNISolone SS 40 MG/ML VIAL IVP SCH (08:19)
[2021-02-14] MEDS: MESALAMINE 400 MG CAPSULE.DR PO SCH (08:20)
--- NOTE | 2021-02-14 10:00 | NUR ---
SEEN BY DR. NICOLE AND DISCUSSED PLAN OF CARE. PATIENT IS FOR DC TODAY.
[2021-02-14] MEDS ORDERED: METH4TAB1 PO (10:41)
[2021-02-14] MEDS ORDERED: MESA400C PO (10:41)
[2021-02-14] MEDS ORDERED: METR-520 PO (10:41)
[2021-02-14] MEDS ORDERED: ACET-8386 PO (10:41)
[2021-02-14] MEDS ORDERED: PSYL0.4C2 PO (10:44)
--- NOTE | 2021-02-14 11:51 | NUR ---
PAPERS SIGNED, IV HEPLOCK REMOVED. DENIES PAIN, WAITING FOR FAMILY TO PICK HIM UP. WILL CONTINUE TO MONITOR.
--- NOTE | 2021-02-14 12:17 | NUR ---
DISCHARGED PATIENT AMBULATORY, IN STABLE CONDITION.
== END 2021-02-14 12:10 | disposition home or self-care (01) | DRG 720 ==
LOC: MED 09:25 → MTU 13:36 → MMU 16:29 → MTU 18:38
PROVIDERS: ADMIT Family Medicine; ATTEND Family Medicine
PROC: 0DBE8ZX Excision of Large Intestine, Via Natural or Artificial Opening Endoscopic, Diagnostic (ICD-10-PCS; principal; 2021-02-10 17:00)
DX: A41.9 Sepsis, unspecified organism (principal); N17.0 Acute kidney failure with tubular necrosis; E43 Unspecified severe protein-calorie malnutrition; E86.0 Dehydration; E78.5 Hyperlipidemia, unspecified; K51.90 Ulcerative colitis, unspecified, without complications; Z20.822 Contact with and (suspected) exposure to COVID-19; Z68.25 Body mass index [BMI] 25.0-25.9, adult; Z85.47 Personal history of malignant neoplasm of testis
CPT/HCPCS: 36415; 71045; 80048; 80053; 80305; 81003; 82150; 83036; 83690; 83735; 83880; 84100; 84436; 84439; 84443; 84479; 84484; 85025; 85610; 85730; 86140; 87015; 87040; 87045; 87070; 87081; 87086; 87177; 88305; 89055; 96361; 96365; 96375; 96376; 99285; J0295; J1200; J1885; J1956; J2250; J2270; J2405; J2920; J3010; J3370; J3490; J7030; J7512; Q0092

== ENCOUNTER 2021-02-16 19:14 | Emergency (ER) | payer MEDICAID, SELFPAY ==
[~2021-02-16 19:14] MED LIST changes: -CIPR500T4 PO; -IBUP-2213 PO; -LEVO500T6 PO; -LID5T TP; +MESA400C PO; +METH4TAB1 PO; +PSYL0.4C2 PO
--- NOTE | 2021-02-16 19:30 | NUR ---
patient called to triage , no response PATIENT LEFT WITHOUT BEING SEEN BY DR. LAZCANO. NO FURTHER CARE PROVIDED FOR PATIENT.
--- NOTE | 2021-02-16 19:35 | NUR ---
CALLED FOR THE SECOND TIME , NO RESPONSE
--- NOTE | 2021-02-16 19:40 | NUR ---
CALLED FOR THE THIRD TIME , NO RESPONSE
== END 2021-02-16 19:30 | disposition left against medical advice (07) ==
LOC: MED 19:14
DX: Z53.21 Procedure and treatment not carried out due to patient leaving prior to being seen by health care provider (principal)

== ENCOUNTER 2021-02-18 09:55 | Emergency (ER) | payer MEDICAID ==
[~2021-02-18] VITALS: Ht 185.4 cm; Wt 81.6 kg
[2021-02-18 10:10] VITALS: BP 101/63
--- NOTE | 2021-02-18 10:15 | NUR ---
PT AMBULATED TO BED 5
--- NOTE | 2021-02-18 10:32 | NUR ---
50 Y MALE WITH C/O OF RASH THAT APPEARED AFTER TAKING MEDICATION METRONIDAZOLE AND MEDROL. PT WAS INFORMED TO STOP TAKING THE MEDICATION AND RASH RESOLVED ITSELF AFTER ONE DAY. PT IS NO SEEKING GUDIANCE TO WHICH MEDICATIONS HE SHOULD TAKE FOR HIS COLITIS. PT WAS SEEM HERE AND D/C UNDER THE CARE OF DR. NICOLE AND DR. JOHNSON. NO CURRENT RASH NOTED AT THIS TIME. PMH: COLITIS NKA
--- NOTE | 2021-02-18 10:48 | NUR ---
DR. PRADO BEDSIDE EVALUATING PT
[2021-02-18] MEDS ORDERED: ALBU0.0912 IH (11:08)
[2021-02-18] MEDS ORDERED: ACET-10509 PO (11:08)
[2021-02-18] MEDS ORDERED: PRED20TA5 PO (11:08)
[2021-02-18 11:15] VITALS: BP 101/63
--- NOTE | 2021-02-18 11:16 | NUR ---
Patient discharged with v/s stable. Written and verbal after care instructions given and explained. Patient alert, oriented and verbalized understanding of instructions. Ambulatory with steady gait. All questions addressed prior to discharge. ID band removed. Patient advised to follow up with PMD. Rx of ACETAMINOPHEN, ALBUTEROL, AND PREDNISONE given. Patient educated on indication of medication including possible reaction and side effects. Opportunity to ask questions provided and answered.
== END 2021-02-18 11:16 | disposition home or self-care (01) ==
LOC: MED 09:55
DX: K52.9 Noninfective gastroenteritis and colitis, unspecified (principal); J45.909 Unspecified asthma, uncomplicated; Z85.47 Personal history of malignant neoplasm of testis; Z79.899 Other long term (current) drug therapy
CPT/HCPCS: 99283

== ENCOUNTER 2022-03-17 11:19 | Emergency (ER) | payer MEDICAID ==
[~2022-03-17] VITALS: Ht 180.3 cm; Wt 81.6 kg
[~2022-03-17 11:19] MED LIST changes: +ACET-10509 PO; +ALBU0.0912 IH; +PRED20TA5 PO
[2022-03-17 11:52] VITALS: BP 134/82
[2022-03-17] MEDS ORDERED: ALBUTEROL SULFATE/IPRATROPIU 3 ML SOL IH ONE ×2 (12:10→12:16)
[2022-03-17] MEDS ORDERED: DEXAMETHASONE 4 MG/ML VIAL PO ONE (12:10)
--- NOTE | 2022-03-17 12:17 | NUR ---
pt to chair b, ekg done, rt giving hhn tx at this time
--- NOTE | 2022-03-17 12:20 | NUR ---
[facility] DRUG GIVEN ORDERED ENCOURAGED PATIENT FOR INTERMITTENT DEEP BREATHING DURING THERAPY
--- NOTE | 2022-03-17 12:39 | NUR ---
51/M PRESENTS TO ED WITH C/O COUGH, SORE THROAT AND SOB SINCE THIS MORNING. PATIENT STATES HIS SON TESTED POSITIVE FOR THE FLU YESTERDAY AND BELIEVES HE MAY HAVE CONTRACTED IT. DENIES N/V/D, FEVERS OR CHILLS.
[2022-03-17] MEDS ORDERED: PRED20TA5 PO (13:47)
[2022-03-17] MEDS ORDERED: ALBU0.0912 IH (13:47)
[2022-03-17] MEDS ORDERED: TAM75 PO (13:47)
[2022-03-17 14:09] VITALS: BP 145/78
--- NOTE | 2022-03-17 14:09 | NUR ---
Patient discharged with v/s stable. Written and verbal after care instructions given. Patient alert, oriented and verbalized understanding of instructions. Ambulatory with steady gait. All questions addressed prior to discharge. ID band removed. Patient advised to follow up with PMD. Rx of Albuterol, Deltasone and Tamiflu given. Opportunity to ask questions provided and answered. WORK NOTE HANDED TO PATIENT.
--- NOTE | 2022-03-17 14:10 | NUR ---
Chart checked and completed. The patient's care was reviewed and supervised by Mariangel Yu RN.
== END 2022-03-17 14:09 | disposition home or self-care (01) ==
LOC: MED 11:19
DX: J10.1 Influenza due to other identified influenza virus with other respiratory manifestations (principal); J45.901 Unspecified asthma with (acute) exacerbation; Z20.822 Contact with and (suspected) exposure to COVID-19; Z85.47 Personal history of malignant neoplasm of testis; Z79.899 Other long term (current) drug therapy; Z79.891 Long term (current) use of opiate analgesic; Z79.1 Long term (current) use of non-steroidal anti-inflammatories (NSAID); Z79.2 Long term (current) use of antibiotics
CPT/HCPCS: 71046; 87426; 87804; 93005; 94640; 99285; J1100

== ENCOUNTER 2022-05-02 10:54 | Emergency (ER) | payer MEDICAID ==
[~2022-05-02] VITALS: Ht 185.4 cm; Wt 88.5 kg
[~2022-05-02 10:54] MED LIST changes: -ACET-8386 PO; +ACET-8905 PO; +TAM75 PO
[2022-05-02 10:57] VITALS: BP 126/65
[2022-05-02] MEDS ORDERED: ERYT5OIN58 OP (11:24)
[2022-05-02] MEDS ORDERED: AMOX875T3 PO (11:24)
[2022-05-02] MEDS ORDERED: MESA500C PO (11:24)
[2022-05-02] MEDS ORDERED: ALBU117P INH (11:24)
--- NOTE | 2022-05-02 11:35 | NUR ---
51M presents to ED with c/o of flu like symptoms and ABD pain x1week. Pt reports intermittent, sharp like, 8/10 pain to mid ABD. Pt reports left ear pain, bilateral eye discharge since Monday night, body aches and chills for 1 week. Pt denies N/V/D, fevers, states he took DayQuil with no relief. Pt denies taking meds today.
--- NOTE | 2022-05-02 11:39 | NUR ---
Patient discharged with v/s stable. Written and verbal after care instructions given and explained. Patient alert, oriented and verbalized understanding of instructions. Ambulatory with steady gait. All questions addressed prior to discharge. ID band removed. Patient advised to follow up with PMD. Rx of Albuterol sulfate, Amoxicillin, Erythromycin and Mesalamine given. Patient educated on indication of medication including possible reaction and side effects. Opportunity to ask questions provided and answered.
== END 2022-05-02 11:39 | disposition home or self-care (01) ==
LOC: MED 10:54
DX: J06.9 Acute upper respiratory infection, unspecified (principal); K51.80 Other ulcerative colitis without complications; H10.9 Unspecified conjunctivitis; H66.92 Otitis media, unspecified, left ear; J45.909 Unspecified asthma, uncomplicated; Z85.47 Personal history of malignant neoplasm of testis
CPT/HCPCS: 99283

== ENCOUNTER 2022-07-02 12:32 | Emergency (ER) | payer MEDICAID ==
[~2022-07-02] VITALS: Ht 180.3 cm; Wt 79.4 kg
[~2022-07-02 12:32] MED LIST changes: +ALBU117P INH; +AMOX875T3 PO; +ERYT5OIN58 OP; +MESA500C PO
[2022-07-02 12:41] VITALS: BP 118/65
[2022-07-02] MEDS ORDERED: HYD1C TP (13:15)
[2022-07-02] MEDS ORDERED: MESA400C3 PO (13:15)
--- NOTE | 2022-07-02 13:40 | NUR ---
Patient discharged with v/s stable. Written and verbal after care instructions given and explained. Patient alert, oriented and verbalized understanding of instructions. Ambulatory with steady gait. All questions addressed prior to discharge. ID band removed. Patient advised to follow up with PMD. Rx of HYDROCORTISONE given. Patient educated on indication of medication including possible reaction and side effects. Opportunity to ask questions provided and answered.
== END 2022-07-02 13:39 | disposition home or self-care (01) ==
LOC: MED 12:32
DX: L30.9 Dermatitis, unspecified (principal); K51.90 Ulcerative colitis, unspecified, without complications; Z76.0 Encounter for issue of repeat prescription; J45.909 Unspecified asthma, uncomplicated; Z85.47 Personal history of malignant neoplasm of testis; Z79.899 Other long term (current) drug therapy; Z79.2 Long term (current) use of antibiotics; Z79.891 Long term (current) use of opiate analgesic; Z79.1 Long term (current) use of non-steroidal anti-inflammatories (NSAID)
CPT/HCPCS: 99282

== ENCOUNTER 2023-04-27 10:30 | Emergency (ER) | payer MEDICAID, OTHER ==
[~2023-04-27] VITALS: Ht 185.4 cm; Wt 90.3 kg
[~2023-04-27 10:30] MED LIST changes: +HYD1C TP; +MESA400C3 PO
[2023-04-27 10:49] VITALS: BP 119/68; PULSE 85; RESP 18; TEMP 97.9; O2SAT 100
[2023-04-27] MEDS ORDERED: ACETAMINOPHEN EXTRA STRENGTH 500 MG TAB PO ONE (11:30)
[2023-04-27] MEDS ORDERED: MESA800T8 PO (11:32)
[2023-04-27] MEDS ORDERED: ACET-10509 PO (11:32)
[2023-04-27 11:45] VITALS: O2SAT 100
== END 2023-04-27 11:57 | disposition home or self-care (01) ==
LOC: MED 10:30
DX: R19.7 Diarrhea, unspecified (principal); R10.84 Generalized abdominal pain; Z87.19 Personal history of other diseases of the digestive system; J45.909 Unspecified asthma, uncomplicated; Z98.890 Other specified postprocedural states; Z79.899 Other long term (current) drug therapy; Z79.2 Long term (current) use of antibiotics; Z79.1 Long term (current) use of non-steroidal anti-inflammatories (NSAID)
CPT/HCPCS: 99283

== ENCOUNTER 2023-05-11 10:46 | Emergency (ER) | payer OTHER ==
[~2023-05-11] VITALS: Ht 185.4 cm; Wt 88.2 kg
[~2023-05-11 10:46] MED LIST changes: +MESA800T8 PO
[2023-05-11 11:05] VITALS: BP 119/81; PULSE 88; RESP 20; TEMP 99.3; O2SAT 99
[2023-05-11] MEDS ORDERED: KETOROLAC 60 MG/2 ML VIAL IM ONE (12:00)
[2023-05-11] MEDS ORDERED: PRED20TA5 PO (12:02)
[2023-05-11] MEDS ORDERED: ACET-503 PO (12:02)
== END 2023-05-11 13:12 | disposition home or self-care (01) ==
LOC: MED 10:46
DX: K51.90 Ulcerative colitis, unspecified, without complications (principal); J45.909 Unspecified asthma, uncomplicated; Z98.890 Other specified postprocedural states; Z79.899 Other long term (current) drug therapy; Z79.2 Long term (current) use of antibiotics
CPT/HCPCS: 96372; 99283; J1885

== ENCOUNTER 2023-08-29 08:30 | Emergency (ER) | payer MEDICAID, OTHER ==
[~2023-08-29] VITALS: Ht 185.4 cm; Wt 88.5 kg
[~2023-08-29 08:30] MED LIST changes: +ACET-503 PO
[2023-08-29 08:38] VITALS: BP 131/89; PULSE 74; RESP 18; TEMP 98.8; O2SAT 100
[2023-08-29] MEDS ORDERED: FLUORESCEIN OPTH STRIP 1 MG OP ONE (08:55)
[2023-08-29] MEDS ORDERED: TETRACAINE HCL/PF 0.5% OPTH 4 ML BTL OP ONE (08:55)
[2023-08-29] MEDS ORDERED: ERYT5OIN51 OP (09:09)
[2023-08-29] MEDS ORDERED: CEPH-588 PO (09:09)
== END 2023-08-29 09:25 | disposition home or self-care (01) ==
LOC: MED 08:30
DX: H00.014 Hordeolum externum left upper eyelid (principal); L03.213 Periorbital cellulitis; J45.909 Unspecified asthma, uncomplicated; Z85.47 Personal history of malignant neoplasm of testis; Z79.1 Long term (current) use of non-steroidal anti-inflammatories (NSAID); Z79.899 Other long term (current) drug therapy
CPT/HCPCS: 99283